=== PATIENT | female | born 1995 | race American Indian/Alaskan Native ===

== ENCOUNTER 2020-07-09 16:35 | Emergency (ER) | payer OTHER ==
[2020-07-09 16:54] VITALS: BP 123/75
--- NOTE | 2020-07-09 16:54 | Emergency Department Report ---
ED HPI - General Chief complaint: Vaginal Bleeding Stated complaint: MISCARRIAGE Time Seen by Provider: 07/09/20 16:53 Source: patient Mode of arrival: Ambulatory Limitations: No Limitations - History of Present Illness Initial comments: 25-year-old -[place] female patient presents with complaints of vaginal bleeding and lower abdominal pain and x2 weeks. Patient states she is approximately 5 weeks and last ultrasound was on 07/03/2020. She denies any dyspareunia/vaginal discharge, urinary symptoms, fever/chills/sweats, or nausea/vomiting/diarrhea. She rates her current pain as a 5/10 in severity and describes it as cramping. - Related Data Allergies Allergy/AdvReac Type Severity Reaction Status Date / Time No Known Allergies Allergy Unverified 07/09/20 16:52 ED Review of Systems ROS: Stated complaint: MISCARRIAGE Other details as noted in HPI Constitutional: denies: chills, fever Respiratory: denies: cough, shortness of breath Cardiovascular: denies: chest pain Gastrointestinal: abdominal pain. denies: nausea, vomiting, diarrhea, constipation Genitourinary: denies: urgency, dysuria, frequency, hematuria, discharge Musculoskeletal: denies: back pain Skin: denies: change in color Neurological: denies: paresthesias ED Past Medical Hx - Past Medical History Previous Medical History?: No - Surgical History Past Surgical History?: No ED Physical Exam - General Limitations: No Limitations General appearance: alert, in no apparent distress - Head Head exam: Present: atraumatic, normocephalic - Eye Eye exam: Present: normal appearance - Neck Neck exam: Present: normal inspection - Respiratory Respiratory exam: Present: normal lung sounds bilaterally. Absent: respiratory distress - Cardiovascular Cardiovascular Exam: Present: regular rate, normal rhythm - GI/Abdominal GI/Abdominal exam: Present: soft, normal bowel sounds. Absent: distended, tenderness, guarding, rebound, rigid - Extremities Exam Extremities exam: Present: full ROM - Back Exam Back exam: Present: full ROM - Neurological Exam Neurological exam: Present: alert, oriented X3 - Psychiatric Psychiatric exam: Present: normal affect, normal mood - Skin Skin exam: Present: warm, dry, intact, normal color. Absent: rash, cyanosis, diaphoretic ED Course Vital Signs 07/09/20 16:51 Temperature 98.7 F Pulse Rate 86 Respiratory 18 Rate Blood Pressure 123/75 O2 Sat by Pulse 99 Oximetry ED Medical Decision Making - Medical Decision Making 25-year-old -[place] female patient presents with complaints of vaginal bleeding and lower abdominal pain and x2 weeks. Patient states she is approximately 5 weeks and last ultrasound was on 07/03/2020. She denies any dyspareunia/vaginal discharge, urinary symptoms, fever/chills/sweats, or nausea/vomiting/diarrhea. She rates her current pain as a 5/10 in severity and describes it as cramping. Critical care attestation.: If time is entered above; I have spent that time in minutes in the direct care of this critically ill patient, excluding procedure time. ED Disposition Condition: Stable
[2020-07-09 17:28] LABS: Basophils % (Auto) 0.4 % (0.0-1.8); Eosinophils # (Auto) 0.1 K/mm3 (0.0-0.4); Eosinophils % (Auto) 1.7 % (0.0-4.3); Hematocrit 32.1 % (30.3-42.9); Hemoglobin 10.5 gm/dl (10.1-14.3); Lymphocytes % (Auto) 23.4 % (13.4-35.0); Mean Corpuscular HGB Conc 33 % (30-34); Mean Corpuscular Volume 76 fl (79-97); Monocytes # (Auto) 0.7 K/mm3 (0.0-0.8); Monocytes % (Auto) 8.1 % (0.0-7.3); Platelet Count 361 K/mm3 (140-440); Red Blood Count 4.24 M/mm3 (3.65-5.03); Red Cell Distribution Width 16.3 % (13.2-15.2)
[2020-07-09 17:43] LABS: Bacteria,Urine 1+ /HPF (Negative); Bilirubin,Urine NEG (Negative); Blood,Urine MOD (Negative); Color,Urine Yellow (Yellow); Mucus,Urine FEW /HPF; Protein,Urine <15 mg/dL mg/dL (Negative); Urobilinogen,Urine < 2.0 mg/dL (<2.0)
[2020-07-09 17:43] LABS: Alanine Aminotransferase 22 units/L (7-56); Albumin 3.9 g/dL (3.9-5); Blood Urea Nitrogen 8 mg/dL (7-17); Calcium 9.2 mg/dL (8.4-10.2); Hemolysis Index 3
[2020-07-09 17:59] LABS: BUN/Creatinine Ratio 13
--- NOTE | 2020-07-09 23:05 | Ultrasound Report ---
US OB <= 14 weeks fetus INDICATION / CLINICAL INFORMATION: vaginal bleeding and pain. COMPARISON: None available. FINDINGS: Uterus measures approximately 11 x 4 x 5 cm. The endometrial echo complex is mildly thickened at 16 m m. No intrauterine gestational sac is seen. There is trace fluid in the cervix. Ovaries are unremarkable. No adnexal lesions are seen. No free fluid. IMPRESSION: 1. No sonographic evidence of intrauterine . There is trace fluid in the cervix. No adnexal lesions or free fluid. Signer Name: Javier Saha MD Signed: 07/09/2020 11:00 PM Workstation Name: [id number]
== END 2020-07-10 00:45 | disposition home or self-care (01) ==
LOC: ED 16:35
DX: O20.8 Other hemorrhage in early pregnancy (principal); Z3A.01 Less than 8 weeks gestation of pregnancy
CPT/HCPCS: 36415; 76801; 80053; 81001; 84702; 85025; 86900; 86901; 87086

== ENCOUNTER 2021-08-02 16:01 | Emergency (ER) | payer OTHER ==
--- NOTE | 2021-08-02 16:37 | Emergency Department Report ---
ED Female HPI - General Chief complaint: Urogenital-Female Stated complaint: VAGINAL ITCHING Time Seen by Provider: 08/02/21 16:09 Source: patient Mode of arrival: Ambulatory Limitations: No Limitations - History of Present Illness Initial comments: Patient is a 26-year-old female presents emergency room complaints of vaginal itching that began approximately 6 days ago. Patient states that she used a new soap and is not sure if that caused the itching. Patient states that she also had a new sexual partner is concerned for STDs. She denies any lesions, blisters, rashes. She denies any abdominal pain, pelvic pain, vaginal discharge, vaginal bleeding, dysuria, urinary symptoms, fever, nausea, vomiting, diarrhea. No past medical history. Last menstrual cycle . She denies any medication allergies - Related Data Previous Rx's Medication Instructions Recorded Last Taken Type Doxycycline Hyclate [Doxycycline 100 mg PO BID 7 Days #14 tab 08/02/21 Unknown Rx Hyclate TAB] Fluconazole [Diflucan TAB] 150 mg PO QDAY 1 Days #3 tablet 08/02/21 Unknown Rx Allergies Allergy/AdvReac Type Severity Reaction Status Date / Time No Known Allergies Allergy Unverified 07/09/20 16:52 ED Review of Systems ROS: Stated complaint: VAGINAL ITCHING Other details as noted in HPI Comment: All other systems reviewed and negative ED Past Medical Hx - Past Medical History Previous Medical History?: No - Surgical History Past Surgical History?: No - Medications Home Medications: Home Medications Medication Instructions Recorded Confirmed Last Taken Type Doxycycline Hyclate [Doxycycline 100 mg PO BID 7 Days #14 tab 08/02/21 Unknown Rx Hyclate TAB] Fluconazole [Diflucan TAB] 150 mg PO QDAY 1 Days #3 tablet 08/02/21 Unknown Rx ED Physical Exam - General Limitations: No Limitations General appearance: alert, in no apparent distress - Head Head exam: Present: atraumatic, normocephalic - Eye Eye exam: Present: normal appearance - ENT ENT exam: Present: mucous membranes moist - Respiratory Respiratory exam: Absent: respiratory distress, accessory muscle use - Neurological Exam Neurological exam: Present: alert, oriented X3 - Psychiatric Psychiatric exam: Present: normal affect, normal mood - Skin Skin exam: Present: warm, dry ED Course Vital Signs 08/02/21 08/02/21 16:02 17:41 Temperature 98.4 F Pulse Rate 85 68 Respiratory 18 15 Rate Blood Pressure 141/84 124/68 [Right] O2 Sat by Pulse 100 100 Oximetry ED Medical Decision Making - Medical Decision Making Patient is a 26-year-old female presents emergency room complaints of vaginal itching that began approximately 6 days ago. Patient states that she used a new soap and is not sure if that caused the itching. Patient states that she also had a new sexual partner is concerned for STDs. She denies any lesions, blisters, rashes. She denies any abdominal pain, pelvic pain, vaginal discharge, vaginal bleeding, dysuria, urinary symptoms, fever, nausea, vomiting, diarrhea. No past medical history. Last menstrual cycle . She denies any medication allergies. Vitals are normal. UA without evidence of UTI. Urine is negative. G/C sent, advised patient that she may follow-up with medical records for results of her test. Patient is requesting prophylactic treatment. Patient given ceftriaxone IM and 2 g p.o. Flagyl while in the emergency department. patient given prescription for medication. Advised patient Please take medication as prescribed. Follow-up with a primary care doctor. Follow-up with the clinic for full STD panel. Please have any partner tested and treated as well. Please follow-up with medical records in approximately a week for results of your test but you been treated for these today. Return to emergency room for any new or symptoms. Critical care attestation.: If time is entered above; I have spent that time in minutes in the direct care of this critically ill patient, excluding procedure time. ED Disposition Clinical Impression: Vaginal itching, Concern about STD in female without diagnosis Disposition: 01 HOME / SELF CARE / HOMELESS Is pt being admited?: No Does the pt Need Aspirin: No Condition: Stable Instructions: Vaginitis, [id number], Safe Sex Additional Instructions: Please take medication as prescribed. Follow-up with a primary care doctor. Follow-up with the clinic for full STD panel. Please have any partner tested and treated as well. Please follow-up with medical records in approximately a week for results of your test but you been treated for these today. Return to emergency room for any new or symptoms. walk in clinic: [email or web address] Address: [address] [place] [id number] Prescriptions: Fluconazole [Diflucan TAB] 150 mg PO QDAY 1 Days #3 tablet Doxycycline Hyclate [Doxycycline Hyclate TAB] 100 mg PO BID 7 Days #14 tab Referrals: [facility] [Outside] - 3-5 Days [facility] [Provider Group] - 3-5 Days [facility], [Primary Care Provider] - 3-5 Days Time of Disposition: 17:17 Print Language: [email or web address]
[2021-08-02 16:58] LABS: HCG Qualitative,Urine Negative (Negative)
[2021-08-02] MEDS ORDERED: metroNIDAZOLE 500 MG TAB PO ONE (17:06)
[2021-08-02] MEDS ORDERED: LIDOCAINE-MPF (1%) 10 MG/1 ML VIAL 5 ML INFILTRATI ONE (17:06)
[2021-08-02 17:07] LABS: Bilirubin,Urine NEG (Negative); Blood,Urine NEG (Negative); Color,Urine Yellow (Yellow); Mucus,Urine 3+ /HPF
[2021-08-02 17:42] VITALS: BP 124/68
== END 2021-08-02 17:42 | disposition home or self-care (01) ==
LOC: ED 16:01
DX: L29.2 Pruritus vulvae (principal); Z11.3 Encounter for screening for infections with a predominantly sexual mode of transmission
CPT/HCPCS: 81001; 81025; 87591; 99283; J0696; J3490